=== PATIENT | female | born 1990 | race African-American/Black ===

== ENCOUNTER 2016-12-21 09:07 | Emergency (ER) | payer OTHER ==
[~2016-12-21] VITALS: Ht 165.1 cm; Wt 113.4 kg
--- NOTE | 2016-12-21 09:13 | PHYS DOC ---
Adult General HPI HPI 26-year-old female at an estimated 20 weeks gestation presenting with significant right shoulder pain as well as some radicular symptoms down her right extremity that she has had before but is acutely worsening over the last several days. Patient has history of shoulder surgery 2 years prior for a [place] lesion. She denies any chest pain or shortness of breath. Patient is fully alert and oriented this time and in no acute distress. She denies any dysuria or hematuria. She's had no complications with this . Review of Systems Review of Systems Constitutional: Denies fever or chills [] Eyes: Denies change in visual acuity, redness, or eye pain [] HENT: Denies nasal congestion or sore throat [] Respiratory: Denies cough or shortness of breath [] Cardiovascular: No additional information not addressed in HPI [] GI: Denies abdominal pain, nausea, vomiting, bloody stools or diarrhea [] : Denies dysuria or hematuria [] Musculoskeletal: Denies back pain, has joint pain [] Integument: Denies rash or skin lesions [] Neurologic: Denies headache, focal weakness or sensory changes [] Endocrine: Denies polyuria or polydipsia [] Physical Exam Physical Exam Constitutional: Well developed, well nourished, no acute distress, non-toxic appearance. [] HENT: Normocephalic, atraumatic, bilateral external ears normal, oropharynx moist, no oral exudates, nose normal. [] Eyes: PERRLA, EOMI, conjunctiva normal, no discharge. [] Neck: Normal range of motion, no tenderness, supple, no stridor. [] Cardiovascular:Heart rate regular rhythm, no murmur [] Lungs & Thorax: Bilateral breath sounds clear to auscultation [] Abdomen: Bowel sounds normal, soft, no tenderness, no masses, no pulsatile masses. [] Skin: Warm, dry, no erythema, no rash. [] Back: No tenderness, no CVA tenderness. [] Extremities: Moderate tenderness in the right shoulder, no cyanosis, no clubbing , ROM intact, no edema. [] Neurologic: Alert and oriented X 3, normal motor function, normal sensory function, no focal deficits noted. [] Psychologic: Affect normal, judgement normal, mood normal. [] EKG EKG [] Radiology/Procedures Radiology/Procedures Indication right shoulder pain. Fall. Internally and externally rotated views of the right shoulder as well as a Y view were obtained. No acute finding is apparent. There are lucencies related to the inferior lip of the glenoid. These may represent small cysts. They have a chronic appearance. If additional evaluation of the shoulder is warranted an MRI examination could be performed. IMPRESSION: No acute bony finding is seen. Course & Med Decision Making Course & Med Decision Making Pertinent Labs and Imaging studies reviewed. (See chart for details) 26-year-old female who's having significant right shoulder pain and trapezius pain with some radicular type symptoms down her right upper extremity and has plain films that are negative for any bony abnormality. IM injection of Norflex was given as this is category B in . I will be prescribing her a course of cyclobenzaprine and will be placing her in a sling for comfort with instruction to follow with orthopedics for her shoulder injury and pain. Her shoulder film indicates some lucencies in the inferior lip of the glenoid which could represent small cysts but no acute bony abnormalities seen. I discussed that the patient may require MRI in the next few days if her pain should persist. Return precautions were provided and acknowledged by the patient. Dragon Disclaimer Dragon Disclaimer This chart was dictated in whole or in part using Voice Recognition software in a busy, high-work load, and often noisy Emergency Department environment. It may contain unintended and wholly unrecognized errors or omissions. Departure Departure: Impression: Primary Impression: Shoulder pain, right Disposition: 01 HOME, SELF-CARE Condition: STABLE Referrals: PCP,UNKNOWN (PCP) VIK HERNANDEZ MD Patient Instructions: Shoulder Pain Additional Instructions: Please follow up with your primary doctor and the orthopedic surgeon for your shoulder injury. Remain in your sling until you can receive follow up and avoid overusing that extremity. Return to the ER if you develop any worsening of your symptoms. Scripts Cyclobenzaprine Hcl (CYCLOBENZAPRINE HCL) 10 Mg Tablet 10 MG PO TID Y for PAIN, #15 TAB Prov: JESSICA THOMAS DO 12/21/16 JESSICA THOMAS DO December 21, 2016 09:13
[2016-12-21] MEDS ORDERED: ORPHENADRINE CITRATE 60 MG/2 ML VIAL. IM ONE (10:00)
[2016-12-21] MEDS ORDERED: CYCL-331 PO (10:06)
--- NOTE | 2016-12-21 10:14 | RAD ---
Indication right shoulder pain. Fall. Internally and externally rotated views of the right shoulder as well as a Y view were obtained. No acute finding is apparent. There are lucencies related to the inferior lip of the glenoid. These may represent small cysts. They have a chronic appearance. If additional evaluation of the shoulder is warranted an MRI examination could be performed. IMPRESSION: No acute bony finding is seen.
[2016-12-21 10:15] VITALS: BP 122/68
[2016-12-21] MEDS ORDERED: ACETAMINOPHEN 325 MG TABLET PO ONE (10:30)
== END 2016-12-21 10:30 | disposition home or self-care (01) ==
LOC: ER 09:07
DX: O26.892 Other specified pregnancy related conditions, second trimester (principal); M25.511 Pain in right shoulder; Z3A.20 20 weeks gestation of pregnancy
CPT/HCPCS: 73030; 96372; 99284; J2360

== ENCOUNTER 2017-05-16 14:36 | Emergency (ER) | payer OTHER ==
[~2017-05-16 14:36] MED LIST: CYCL-331 PO
[2017-05-16 14:48] VITALS: BP 122/68
--- NOTE | 2017-05-16 15:51 | PHYS DOC ---
Past History Past Medical History: No Pertinent History Past Surgical History: Alcohol Use: None Drug Use: None Adult General Chief Complaint Chief Complaint: BREAST PROBLEM HPI HPI Patient is a 26 year old female who presents with complaint of breast pain. Patient states that she has been having swelling to her bilateral breasts. Patient recently delivered by 2 weeks ago. The patient states that she had a complicated hospital course secondary to fluid overload that led to pulmonary edema. Patient states that her symptoms have been improving, however she still has noticed swelling in her legs. Patient denies severe shortness of breath or chest pain currently. Patient has not noticed any redness or warmth to her breasts. Patient has been applying warm compresses to her breasts with no improvement in symptoms. Patient has been taking hydrocodone as well with no improvement. Review of Systems Review of Systems Constitutional: Denies fever or chills [] Eyes: Denies change in visual acuity, redness, or eye pain [] HENT: Denies nasal congestion or sore throat [] Respiratory: Denies cough or shortness of breath [] Cardiovascular: Edema, denies chest pain,[] GI: Denies abdominal pain, nausea, vomiting, bloody stools or diarrhea [] : Breast pain, denies dysuria or hematuria [] Musculoskeletal: Denies back pain or joint pain [] Integument: Denies rash or skin lesions [] Neurologic: Denies headache, focal weakness or sensory changes [] Current Medications Current Medications Current Medications Medications (Trade) Dose Ordered Sig/Sherly Start Time Stop Time Status Last Admin Dose Admin Furosemide (Lasix) 60 mg 1X ONCE 05/16/17 16:00 05/16/17 16:01 UNV Allergies Allergies Allergies Coded Allergies Type Severity Reaction Last Updated Verified codeine Allergy Intermediate 12/21/16 Yes Physical Exam Physical Exam Constitutional: Well developed, well nourished, no acute distress, non-toxic appearance. [] HENT: Normocephalic, atraumatic, bilateral external ears normal, oropharynx moist, no oral exudates, nose normal. [] Eyes: PERRLA, EOMI, conjunctiva normal, no discharge. [] Neck: Normal range of motion, no tenderness, supple, no stridor. [] Cardiovascular:Heart rate regular rhythm, no murmur [] Breast exam: Symmetric bilateral enlargement, no erythema or abnormal skin dimpling, no fluctuant lesions palpated, diffuse tenderness to palpation with moderate bilaterally engorgement Lungs & Thorax: Bilateral breath sounds clear to auscultation [] Abdomen: Bowel sounds normal, soft, no tenderness, no masses, no pulsatile masses. [] Skin: Warm, dry, no erythema, no rash. [] Back: No tenderness, no CVA tenderness. [] Extremities: No tenderness, no cyanosis, no clubbing, ROM intact, no edema. [] Neurologic: Alert and oriented X 3, normal motor function, normal sensory function, no focal deficits noted. [] Current Patient Data Vital Signs Vital signs were reviewed and are stable Lab Results None performed EKG EKG Not performed[] Radiology/Procedures Radiology/Procedures Not performed[] Course & Med Decision Making Course & Med Decision Making Pertinent Labs and Imaging studies reviewed. (See chart for details) The patient did not display clinical signs of respiratory distress on exam. The patient's symptoms appear consistent with continued retained fluid likely from her recent hospitalization and administration of IV fluids. This is led to breast engorgement. The patient is not currently breast-feeding. I recommended against use of breast pump to alleviate her engorgement as this would lead to continued no production and continued symptoms. The patient was given a one- time dose of Lasix in the emergency department to facilitate fluid removal. Advised use of cold compresses to reduce swelling. Recommended follow-up with primary doctor in 2-3 days for reevaluation and return emergency department for any worsening symptoms. Patient voiced understanding and in agreement with treatment plan. Dragon Disclaimer Dragon Disclaimer This chart was dictated in whole or in part using Voice Recognition software in a busy, high-work load, and often noisy Emergency Department environment. It may contain unintended and wholly unrecognized errors or omissions. Departure Departure: Impression: Primary Impression: Breast engorgement Disposition: 01 HOME, SELF-CARE Condition: STABLE Referrals: PCP,UNKNOWN (PCP) Patient Instructions: , Engorgement Problems Additional Instructions: Follow-up with your doctor in the next 2-3 days for reevaluation. Return to the emergency department for any worsening symptoms. Scripts Hydrocodone Bit/Acetaminophen (NORCO 10-325 TABLET) 1 Each Tablet 1 TAB PO Q6HRS Y for PAIN, #15 TAB 0 Refills Prov: VIVI SAHNI MD 05/16/17 VIVI SAHNI MD May 16, 2017 15:51
[2017-05-16] MEDS ORDERED: HYDR-963 PO (15:53)
[2017-05-16] MEDS ORDERED: FUROSEMIDE 40 MG TABLET PO ONE (16:00)
== END 2017-05-16 16:06 | disposition home or self-care (01) ==
LOC: ER 14:36
DX: N64.59 Other signs and symptoms in breast (principal); R22.43 Localized swelling, mass and lump, lower limb, bilateral; Z88.5 Allergy status to narcotic agent
CPT/HCPCS: 99283

== ENCOUNTER → 2017-05-21 | Outpatient (CLI) | payer OTHER ==
[2017-05-16 14:48] VITALS: BP 122/68
[~2017-05-21] MED LIST changes: +HYDR-963 PO; +HYDR-971 PO
--- NOTE | 2017-05-21 15:46 | RAD ---
Left breast ultrasound, 05/21/2017: History: breast lump The left breast was carefully scanned. There are are dilated ducts present in the area of clinical concern from approximately 4:00 to 8:00 in the periareolar region. There is echogenic debris within the ducts. This is the area of patient tenderness. No discrete abscess is identified. Limited examination of the right breast showed no similar ductal dilatation. IMPRESSION: Dilated ducts in the left periareolar region containing heterogeneous debris suggesting infection. No discrete abscess is identified. Sonographic follow-up after treatment is suggested to exclude a neoplastic etiology.
== END | disposition home or self-care (01) ==
LOC: US 14:29
PROVIDERS: ATTEND Obstetrics & Gynecology
DX: N63.20 Unspecified lump in the left breast, unspecified quadrant (principal); N64.4 Mastodynia; F17.200 Nicotine dependence, unspecified, uncomplicated
CPT/HCPCS: 76641

== ENCOUNTER 2017-06-15 12:15 | Emergency (ER) | payer OTHER ==
[~2017-06-15] VITALS: Ht 165.1 cm; Wt 116.1 kg
[~2017-06-15 12:15] MED LIST changes: -HYDR-971 PO
[2017-06-15 12:27] VITALS: BP 152/100
[2017-06-15] MEDS ORDERED: HYDR-971 PO (12:56)
[2017-06-15] MEDS ORDERED: MORPHINE SULFATE 10 MG/ML SYRINGE. IM ONE (13:00)
--- NOTE | 2017-06-15 13:01 | PHYS DOC ---
General Chief Complaint: WOUND CHECK Stated Complaint: WOUND CHECK Time Seen by MD: 12:53 Source: patient Exam Limitations: no limitations Problems: History of Present Illness Initial Comments Patient is a 26-year-old female who comes to the ED for pain control. Patient states that she had 3 abscesses I&D 2 weeks ago they were left open to heal by secondary intention by her surgeon. She denies any new swelling redness or discharge, states she had a fall yesterday to her left chest for which she did not sustain any injuries but says that it aggravated the pain control of her open wounds. States she also ran out of her pain medications last night. She has 1 wound under her left breast and 2 at her left abdomen states she did not call her surgeon last night or today but has instead chosen to come here for pain control. No fever chills sweats or myalgias and as stated no new evidence of infection at her open wounds. ED vital signs are stable she is mildly hypertensive but not symptomatic from that elevated blood pressure Timing/Duration: constant, other Severity: moderate Modifying Factors: improves with medication, worse with movement, improves with rest Associated Symptoms: other Allergies: Coded Allergies: codeine (Verified Allergy, Intermediate, 06/15/17) tramadol (Verified Allergy, Unknown, 06/15/17) Past Medical History Medical History: no pertinent history Surgical History: other Social History Smoker: cigarettes Alcohol: none Drugs: none Review of Systems Constitutional: denies chills, denies diaphoresis, denies fever, denies malaise , denies weakness Respiratory: denies cough, denies shortness of breath Cardiovascular: denies chest pain, denies palpitations, denies syncope Gastrointestinal: see HPI, denies diarrhea, denies nausea, denies vomiting Genitourinary: denies frequency, denies hematuria, denies pain Musculoskeletal: see HPI Skin: see HPI Psychiatric/Neurological: denies headache, denies numbness, denies paresthesia Physical Exam General Appearance: no apparent distress (appear slightly altered as if medicated, patient states that she did not sleep last night due to pain and is very tired), obese Eyes: bilateral eye normal inspection, bilateral eye PERRL, bilateral eye EOMI Ear, Nose, Throat: hearing grossly normal, normal ENT inspection, normal pharynx Neck: non-tender Respiratory: chest non-tender, normal breath sounds Cardiovascular: normal peripheral pulses, regular rate, rhythm Gastrointestinal: normal bowel sounds, soft Back: no CVA tenderness, no vertebral tenderness Extremities: normal range of motion, non-tender, normal inspection, no calf tenderness, pelvis stable Neurologic/Psychiatric: head grinder II-XII nml as tested, no motor/sensory deficits, alert, normal mood/affect, oriented x 3 Skin: warm/dry (3 healing wounds 1 on the left breast to the left abdomen no evidence of infection covered with sterile dressing.) Orders, Labs, Meds I advised the patient that her first call regarding any issues with these wounds moving forward to be to her surgeon. I discussed [id number] and prescription medications discussed wound care I discussed signs and symptoms to monitor to monitor as well as indications for urgent return to the department. Patient's questions were answered to her satisfaction she expressed agreement and understanding with treatment plan. Departure Time of Disposition: 12:57 Disposition: 01 HOME, SELF-CARE Diagnosis: post-op pain control Condition: GOOD Patient Instructions: Wound Check Additional Instructions: Continue postoperative wound care given per your surgeon. As discussed, moving forward your first call for any concerns regarding your postoperative wounds should be to your surgeon or their on-call welding equipment sales representative. Morphine given intramuscularly in the emergency department to try to help to get ahead of your pain. Prescription: [place] 5 mg quantity 10 Increase fluid intake and take [id number] stool softeners to avoid opiate- induced constipation. Further pain control and wound management per your surgeon. Return to the ED with new or other conditions. BASIL JACKSON DO Jun 15, 2017 13:01
== END 2017-06-15 13:10 | disposition home or self-care (01) ==
LOC: ER 12:15
DX: G89.18 Other acute postprocedural pain (principal); R10.9 Unspecified abdominal pain; N64.4 Mastodynia
CPT/HCPCS: 96372; 99283; J2270

== ENCOUNTER 2017-07-18 15:13 | Emergency (ER) | payer OTHER ==
[~2017-07-18] VITALS: Ht 165.1 cm; Wt 116.1 kg
[2017-07-18 15:13] VITALS: BP 152/100
[~2017-07-18 15:13] MED LIST changes: +HYDR-971 PO
[2017-07-18] MEDS ORDERED: HYDROcodone/APAP 5/325MG 1 TAB TABLET PO ONE (16:45)
[2017-07-18] MEDS ORDERED: HYDR-971 PO (17:01)
--- NOTE | 2017-07-18 17:01 | PHYS DOC ---
Past History Past Medical History: Other Past Surgical History: Other Alcohol Use: None Drug Use: None Adult General Chief Complaint Chief Complaint: POST-OP PROBLEM HPI HPI Patient is a [26] year old [female] who presents with [pain in left thigh after surgery. Patient states she had a high abscess with wound vac placement 2.5 weeks ago. The wound vac came out today and she had another one at home and inserted in medial thigh area but her pain increased and she took her last hydrocodone 10 mg this morning and does not have any more pain medication. Patient denies fever and chills, focal neuro deficit, change of color of her thigh. Review of Systems Review of Systems Constitutional: Denies fever or chills [] Eyes: Denies change in visual acuity, redness, or eye pain [] HENT: Denies nasal congestion or sore throat [] Respiratory: Denies cough or shortness of breath [] Cardiovascular: No additional information not addressed in HPI [] GI: Denies abdominal pain, nausea, vomiting, bloody stools or diarrhea [] : Denies dysuria or hematuria [] Musculoskeletal: Denies back pain or joint pain , reports extremity pain[] Integument: Denies rash or skin lesions [] Neurologic: Denies headache, focal weakness or sensory changes [] Endocrine: Denies polyuria or polydipsia [] All other systems were reviewed and found to be within normal limits, except as documented in this note. Current Medications Current Medications Current Medications Medications (Trade) Dose Ordered Sig/Sherly Start Time Stop Time Status Last Admin Dose Admin Acetaminophen/ Hydrocodone Bitart (Lortab 5/325) 2 tab 1X ONCE 07/18/17 16:45 07/18/17 16:46 DC Allergies Allergies Allergies Coded Allergies Type Severity Reaction Last Updated Verified codeine Allergy Intermediate 06/15/17 Yes tramadol Allergy Unknown 06/15/17 Yes Physical Exam Physical Exam Constitutional: Mild distress, non-toxic appearance. [] HENT: Normocephalic, atraumatic, bilateral external ears normal, oropharynx moist, no oral exudates, nose normal. [] Eyes: PERRLA, EOMI, conjunctiva normal, no discharge. [] Neck: Normal range of motion, no tenderness, supple, no stridor. [] Cardiovascular:Heart rate regular rhythm, no murmur [] Lungs & Thorax: Bilateral breath sounds clear to auscultation [] Skin: Warm, dry, no erythema, no rash. [] Back: No tenderness, no CVA tenderness. [] Extremities: No tenderness, no cyanosis, no clubbing, ROM intact, no edema. wound vac in medial of right thigh without active bleeding [] Neurologic: Alert and oriented X 3, normal motor function, normal sensory function, no focal deficits noted. [] Psychologic: Affect normal, judgement normal, mood normal. [] EKG EKG [] Radiology/Procedures Radiology/Procedures [] Dragon Disclaimer Dragon Disclaimer This electronic medical record was generated, in whole or in part, using a voice recognition dictation system. Departure Departure: Impression: Primary Impression: Medication refill Disposition: HOME, SELF-CARE (At 1700) Condition: STABLE Referrals: GLENNY TIWARI MD (PCP) Patient Instructions: Medication Refill, Emergency Department Additional Instructions: Follow-up with your surgeon in 2 days for refill of pain medication Scripts Hydrocodone Bit/Acetaminophen (NORCO 5-325 TABLET) 1 Each Tablet 1 TAB PO PRN Q6HRS Y for PAIN for 2 Days, #10 TAB 0 Refills Prov: CHRISTOPHER LEY MD 07/18/17 CHRISTOPHER LEY MD Jul 18, 2017 17:01
== END 2017-07-18 17:04 | disposition home or self-care (01) ==
LOC: ER 15:13
DX: Z76.0 Encounter for issue of repeat prescription (principal); G89.18 Other acute postprocedural pain; M79.652 Pain in left thigh; Z98.890 Other specified postprocedural states; Z88.5 Allergy status to narcotic agent; Z88.6 Allergy status to analgesic agent
CPT/HCPCS: 99283

== ENCOUNTER 2018-04-05 16:38 | Emergency (ER) | payer OTHER ==
[~2018-04-05] VITALS: Ht 165.1 cm; Wt 122.5 kg
[2018-04-05 16:48] VITALS: BP 117/84
--- NOTE | 2018-04-05 17:14 | RAD ---
EXAM: Right shoulder, 4 views. HISTORY: Pain. COMPARISON: 12/21/2016 FINDINGS: 4 views of the right shoulder obtained. There is glenohumeral subchondral cyst formation and minimal inferior humeral head spurring. There is no fracture, dislocation or subluxation. IMPRESSION: Right glenohumeral osteoarthritis. This has progressed compared to the prior study. Electronically signed by: Juliette Cohen MD (04/05/2018 5:10 PM) [facility]
[2018-04-05] MEDS ORDERED: HYDROcodone/APAP 5/325MG 1 TAB TABLET PO ONE (17:15)
[2018-04-05] MEDS ORDERED: HYDR-971 PO (17:22)
[2018-04-05] MEDS ORDERED: IBUP800T19 PO (17:22)
--- NOTE | 2018-04-05 17:23 | PHYS DOC ---
Past History Past Medical History: No Pertinent History Past Surgical History: Other Smoking: Non-smoker Alcohol Use: None Drug Use: None Adult General Chief Complaint Chief Complaint: SHOULDER INJURY HPI HPI Patient is a 27-year-old right-handed female patient who presents with complaining of right shoulder pain. Patient states she had the right shoulder surgeries 2 and last night had a fall on slippery shower and landed on her back with a bad movement of right shoulder. Patient complaining of pain since the injury that getting worse with movement of her shoulder and rated her pain 10 over 10. Patient states she took the last leftover of the quadrant today with mild improvement of her pain. Patient denies focal neuro deficit and other injuries. Review of Systems Review of Systems Constitutional: Denies fever or chills [] Eyes: Denies change in visual acuity, redness, or eye pain [] HENT: Denies nasal congestion or sore throat [] Respiratory: Denies cough or shortness of breath [] Cardiovascular: No additional information not addressed in HPI [] GI: Denies abdominal pain, nausea, vomiting, bloody stools or diarrhea [] : Denies dysuria or hematuria [] Musculoskeletal: Denies back pain, reports joint pain [] Integument: Denies rash or skin lesions [] Neurologic: Denies headache, focal weakness or sensory changes [] Endocrine: Denies polyuria or polydipsia [] All other systems were reviewed and found to be within normal limits, except as documented in this note. Current Medications Current Medications Current Medications Medications (Trade) Dose Ordered Sig/Sherly Start Time Stop Time Status Last Admin Dose Admin Acetaminophen/ Hydrocodone Bitart (Lortab 5/325) 1 tab 1X ONCE 04/05/18 17:15 04/05/18 17:16 UNV Allergies Allergies Allergies Coded Allergies Type Severity Reaction Last Updated Verified codeine Allergy Intermediate 04/05/18 Yes tramadol Allergy Unknown 04/05/18 Yes Physical Exam Physical Exam Constitutional: Well developed, well nourished, mild distress, non-toxic appearance. [] HENT: Normocephalic, atraumatic Eyes: PERRLA, EOMI, conjunctiva normal, no discharge. [] Neck: Normal range of motion, no tenderness, supple, no stridor. [] Cardiovascular:Heart rate regular rhythm, no murmur [] Lungs & Thorax: Bilateral breath sounds clear to auscultation [] Back: No tenderness, no CVA tenderness. [] Extremities: Right shoulder without deformity or contusion, painful range of motion without limited range of motion No tenderness, no cyanosis, no clubbing, ROM intact, no edema. [] Neurologic: Alert and oriented X 3, normal motor function, normal sensory function, no focal deficits noted. [] Psychologic: Affect anxious, judgement normal, mood normal. [] Current Patient Data Vital Signs Vital Signs Date Time Temp Pulse Resp B/P (MAP) Pulse Ox O2 Delivery O2 Flow Rate FiO2 04/05/18 16:48 97.7 105 18 97 Room Air EKG EKG [] Radiology/Procedures Radiology/Procedures [][place] [id number] IMAGING REPORT Signed PATIENT: AMY ARTIS ACCOUNT: [id number] : 1990 LOCATION: ER AGE: 27 SEX: F EXAM STATUS: REG ER ORD. PHYSICIAN: CHRISTOPHER LEY MD REASON: injury to right shoulder PROCEDURE: SHOULDER 2+V RIGHT EXAM: Right shoulder, 4 views. HISTORY: Pain. COMPARISON: 12/21/2016 FINDINGS: 4 views of the right shoulder obtained. There is glenohumeral subchondral cyst formation and minimal inferior humeral head spurring. There is no fracture, dislocation or subluxation. IMPRESSION: Right glenohumeral osteoarthritis. This has progressed compared to the prior study. Electronically signed by: Juliette Cuellar MD (04/05/2018 5:10 PM) [facility] DICTATED AND SIGNED BY: JULIETTE CUELLAR MD DATE: 04/05/18 2047 CC: CHRISTOPHER LEY MD; GLENNY TIWARI MD ~ Course & Med Decision Making Course & Med Decision Making Pertinent Labs and Imaging studies reviewed. (See chart for details) [] Dragon Disclaimer Dragon Disclaimer This electronic medical record was generated, in whole or in part, using a voice recognition dictation system. Departure Departure: Impression: Primary Impression: Sprain of right shoulder Additional Impressions: Osteoarthritis of right shoulder Morbid obesity Disposition: HOME, SELF-CARE (at 1720) Condition: STABLE Referrals: GLENNY TIWARI MD (PCP) Patient Instructions: Shoulder Sprain Additional Instructions: Apply ice on your shoulder Use your shoulder sling Follow-up with your physician in 2 or 3 days Return to emergency room if not getting better Scripts Hydrocodone Bit/Acetaminophen (NORCO 5-325 TABLET) 1 Each Tablet 1 TAB PO PRN Q6HRS PRN for PAIN, #10 TAB 0 Refills Prov: CHRISTOPHER LEY MD 04/05/18 Ibuprofen (IBUPROFEN) 800 Mg Tablet 1 TAB PO TID, #30 TAB Prov: CHRISTOPHER LEY MD 04/05/18 Problem Qualifiers CHRISTOPHER LEY MD Apr 05, 2018 17:23
== END 2018-04-05 17:29 | disposition home or self-care (01) ==
LOC: ER 16:38
DX: S43.401A Unspecified sprain of right shoulder joint, initial encounter (principal); M19.011 Primary osteoarthritis, right shoulder; E66.01 Morbid (severe) obesity due to excess calories; Z68.41 Body mass index [BMI] 40.0-44.9, adult; Z88.5 Allergy status to narcotic agent; Z88.6 Allergy status to analgesic agent; W18.2XXA Fall in (into) shower or empty bathtub, initial encounter; Y93.89 Activity, other specified; Y92.89 Other specified places as the place of occurrence of the external cause; Y99.8 Other external cause status
CPT/HCPCS: 73030; 99284